=== PATIENT | female | born 1960 | race Caucasian/White ===

== ENCOUNTER 2020-04-28 19:50 | Emergency (ER) | payer OTHER, SELFPAY ==
--- NOTE | ~2020-04-28 | XR_ITS ---
XR ankle RT min 3V DATE: 04/28/2020 20:22 INDICATION: Rolled right ankle. Lateral pain and swelling. TECHNIQUE: 4 views COMPARISON: None FINDINGS: There is an avulsion fracture of the tip of the lateral malleolus, with mild overlying soft tissue swelling. No other fracture or dislocation or disruption of the ankle mortise. IMPRESSION: Cortical avulsion fracture of tip of lateral malleolus Reviewed, dictated and finalized at location A.
--- NOTE | 2020-04-28 19:53 | ED.LOWEXIN ---
HPI - Extremity Injury (Lower) General Chief Complaint: Extremity Injury, Lower Stated Complaint: Right ankle injury Time Seen by Provider: 04/28/20 19:57 Source: patient and RN notes reviewed Mode of arrival: ambulatory Limitations: no limitations History of Present Illness HPI Narrative: 59-year-old female presents to the emergency room with right lateral ankle pain and swelling after stepping off the curb in somehow twisting her ankle. Swelling is noted to the lateral right ankle. Tenderness to palpation in the lateral malleolus. Able to move all 5 toes. Positive pedal pulse. No metatarsal pain. Related Data Home Medications Medication Instructions Recorded Confirmed bupropion HCl 200 mg PO BID 04/28/20 04/28/20 estradiol-norethindrone acet 1 tablet PO DAILY 04/28/20 04/28/20 [[place]] hydrocodone-acetaminophen 1 tablet PO Q6H PRN 04/28/20 04/28/20 lisinopril 20 mg PO DAILY 04/28/20 04/28/20 omeprazole 20 mg PO DAILY 04/28/20 04/28/20 Allergies Allergy/AdvReac Type Severity Reaction Status Date / Time No Known Allergies Allergy Verified 04/28/20 20:12 Review of Systems Review of Systems: Narrative: CONSTITUTIONAL: Denies fever, chills, or sweats. CARDIOVASCULAR: Denies chest pain, palpitations, or edema. RESPIRATORY: Denies cough or dyspnea. GASTROINTESTINAL: Denies abdominal pain, nausea, vomiting, or diarrhea. GENITOURINARY: Denies dysuria or hematuria. SKIN: Denies rash or itching. MUSCULOSKELETAL: Denies back pain, or myalgia. Right lateral ankle pain and swelling. NEUROLOGIC: Denies headache, numbness, or weakness. PSYCHIATRIC: Denies anxiety or depression. All other systems reviewed are negative, except as documented in HPI. [facility] Past Medical History Medical History (Updated 04/28/20 @ 20:38 by Nolvia Mejia) Anxiety Chronic back pain GERD (gastroesophageal reflux disease) Hypertension Comments At the time of my signature, I reviewed and agree with the nursing past medical, surgical, social, and family history. There is no relevant family history pertinent to the patient complaint. Exam Narrative: Exam Narrative: GENERAL: This is a well-nourished, well-developed patient, in no apparent distress. HEAD: normocephalic, atraumatic. EYES: PERRL. EARS: External ears normal NECK: Neck supple, non-tender without lymphadenopathy, masses or thyromegaly. CARDIOVASCULAR: Regular rate and rhythm without murmurs, gallops, or rubs. RESPIRATORY: Clear to auscultation. Breath sounds equal bilaterally. No wheezes, rales, or rhonchi. SKIN: warm, intact with no suspicious lesions or rash, good texture and turgor. NEURO: awake, alert, and oriented to person, place and time. There were no obvious focal neurologic abnormalities. EXTREMITIES: Right lateral ankle tenderness with swelling. No calf tenderness. Negative Homans sign bilaterally.No bruising or metatarsal pain BACK: Nontender without deformity. Course Course Emergency Course: Splint applied. Post splint PMS intact. Discussed the importance of using crutches and not be weightbearing. The importance of leaving the splint on not removing it until cleared by Ortho. Patient and both verbalized understanding Vital Signs Vital signs: Vital Signs Temperature 98.4 F 04/28/20 19:55 Pulse Rate 81 04/28/20 19:55 Respiratory Rate 20 04/28/20 19:55 Blood Pressure 126/75 04/28/20 19:55 Pulse Oximetry 99 04/28/20 19:55 Temperature 98.4 F 04/28/20 19:55 Pulse Rate 81 04/28/20 19:55 Respiratory Rate 20 04/28/20 19:55 Blood Pressure 126/75 04/28/20 19:55 Pulse Oximetry 99 04/28/20 19:55 Reviewed MDM - Extremity Injury (Lower) MDM Narrative Medical decision making narrative: Discharge instructions reviewed with patient, as well as provided in writing per nursing staff. The instructions also include specific and strict return/GO TO THE ER as well as f/u information. All questions have been answered, and the pa
[2020-04-28 19:55] VITALS: BP 126/75; PULSE 81; RESP 20; TEMP 36.9; O2SAT 99
== END 2020-04-28 21:00 | disposition home or self-care (01) ==
PROVIDERS: Emergency Provider Nurse Practitioner; PCP Internal Medicine
DX: S82.64XA Nondisplaced fracture of lateral malleolus of right fibula, initial encounter for closed fracture (principal); X50.9XXA Other and unspecified overexertion or strenuous movements or postures, initial encounter; I10 Essential (primary) hypertension; K21.9 Gastro-esophageal reflux disease without esophagitis; F41.9 Anxiety disorder, unspecified
CPT/HCPCS: 29515; 73610; 99214; G0463

== ENCOUNTER 2022-02-04 11:51 | Outpatient (CLI) | payer OTHER, SELFPAY ==
--- NOTE | ~2022-02-04 | MR_ITS ---
MRI of the left shoulder Technique: Axial proton-density fat-sat images, coronal proton density fat-sat and T2 fat-sat images, and sagittal T1-weighted and T2 fat-sat images were acquired. Clinical History: Pain Findings: There is minimal degenerative change at the AC joint, without significant subacromial spur. Coracoclavicular, coracoacromial, and coracohumeral ligaments are intact. Supraspinatus and infraspinatus tendons are intact, without partial or full-thickness tear. Subscapul mao tendon is intact with minimal tendinosis. Tendon of the long head of the biceps is intact. No definite labral tear identified. Probable small sublabral recess superiorly. There is area of marrow edema at the posterior superior humeral head. Inferior humeral ligament is in tact. Small glenohumeral joint effusion is present. Mild chondromalacia of the glenohumeral joint. No fluid distention of the subacromial/subdeltoid bursa. No muscle atrophy or edema. Impression: Marrow edema at the posterior superior humeral head. Correlate for bone contusion or impaction injury . No definite Hill-Sachs deformity present, but correlate for prior shoulder dislocation injury. No rotator cuff or definite labral tear. Mild chondromalacia of the glenohumeral joint with small joint effusion. Reviewed, dictated and finalized at [facility]. [employer] Impression: Marrow edema at the posterior superior humeral head. Correlate for bone contusi on or impaction injury. No definite Hill-Sachs deformity present, but correlate for prior shoulder dislocation injury. No rotator cuff or definite labral tear. Mild chondromalacia of the glenohumeral joint with small joint effusion.
== END 2022-02-04 11:52 ==
LOC: MICIMG 11:54
PROVIDERS: PCP Physician Assistant; Visit Provider Physician Assistant Surgical
DX: M75.82 Other shoulder lesions, left shoulder (principal); M25.512 Pain in left shoulder; M94.212 Chondromalacia, left shoulder
CPT/HCPCS: 73221

== ENCOUNTER 2022-06-24 16:31 | Emergency (ER) | payer OTHER, SELFPAY ==
[2022-06-24 16:36] VITALS: BP 108/68; PULSE 81; RESP 16; TEMP 37.3; O2SAT 96
--- NOTE | 2022-06-24 16:42 | ED.URI ---
HPI - URI/Sore Throat General Chief Complaint: Upper Respiratory Infection Stated Complaint: sore throat Time Seen by Provider: 06/24/22 16:42 Source: patient and RN notes reviewed History of Present Illness HPI Narrative: Patient is a 8-year-old female presents to urgent care with complaints of a sore throat since Tuesday. Patient denies any exposures. States that she has not had any fever, nausea or vomiting however her temperature ?normally runs 96-97 F . Patient has not taken anything [id number] for her symptoms. No other acute complaints. No acute distress noted. Patient aware of the plan of care. Some parts of this dictation were generated by voice recognition software and may contain typographical and/or grammatical inaccuracies. Related Data Home Medications Medication Instructions Recorded Confirmed bupropion HCl 200 mg tablet,12 hr 200 mg PO BID 04/28/20 06/24/22 sustained-release lisinopril 20 mg tablet 20 mg PO DAILY 04/28/20 06/24/22 Allergies Allergy/AdvReac Type Severity Reaction Status Date / Time No Known Allergies Allergy Verified 06/24/22 16:43 Review of Systems Review of Systems: CONSTITUTIONAL: Denies fever, chills, or sweats. EYES: Denies visual changes, redness, or discharge. ENT: Reports a sore throat, mild congestion, postnasal drainage CARDIOVASCULAR: Denies chest pain, palpitations, or edema. RESPIRATORY: Denies cough or dyspnea. GASTROINTESTINAL: Denies abdominal pain, nausea, vomiting, or diarrhea. GENITOURINARY: Denies dysuria or hematuria. SKIN: Denies rash or itching. MUSCULOSKELETAL: Denies back pain, joint pain, or myalgia. NEUROLOGIC: Denies headache, numbness, or weakness. All other systems reviewed are negative, except as documented in HPI. [facility] Past Medical History Medical History Anxiety Chronic back pain Closed fracture of distal end of right fibula and tibia (~04/28/20) GERD (gastroesophageal reflux disease) Hypertension Social History Social History Smoking status: Unknown if ever smoked Lack of Transportation: No Lack of Food: Never True Current Housing: I Have Housing Concerned About Future Housing: No Difficulty Paying Gas/Electric Bills: No Difficulty Paying for Meds: No Currently Unemployed: No Education: Trade/Vocational Certificate Difficulty w/ Childcare or Family Care: No Comments At the time of my signature, I reviewed and agree with the nursing past medical, surgical, social, and family history. There is no relevant family history pertinent to the patient complaint. Exam Narrative: GENERAL: This is a well-nourished, well-developed patient, in no apparent distress. HEAD: normocephalic, atraumatic. EYES: PERRL. Sclera clear/white. Vision is grossly intact. EARS: External ears normal, auditory canals clear and without drainage, TMs normal without perforation. Hearing grossly intact. NOSE: External nose normal with no obvious nasal discharge, nares without redness, clear rhinorrhea. THROAT: Mucous membranes moist, mild erythema to posterior pharynx with moderate postnasal drainage NECK: Neck supple CARDIOVASCULAR: Regular rate and rhythm without murmurs, gallops, or rubs. RESPIRATORY: Clear to auscultation. Breath sounds equal bilaterally. No wheezes, rales, or rhonchi. SKIN: warm, intact with no suspicious lesions or rash, good texture and turgor. NEURO: awake, alert, and oriented to person, place and time. There were no obvious focal neurologic abnormalities. EXTREMITIES: No clubbing, cyanosis, or edema. Course Course Level of Care: Express Care Visit Vital Signs Vital signs: Vital Signs Temperature 99.1 F 06/24/22 16:36 Pulse Rate 81 06/24/22 16:36 Respiratory Rate 16 06/24/22 16:36 Blood Pressure 108/68 06/24/22 16:36 Pulse Oximetry 96 06/24/22 16:36 Oxygen Delivery
== END 2022-06-24 17:06 | disposition home or self-care (01) ==
PROVIDERS: Emergency Provider Nurse Practitioner Family; PCP Physician Assistant
DX: J02.9 Acute pharyngitis, unspecified (principal); K21.9 Gastro-esophageal reflux disease without esophagitis; I10 Essential (primary) hypertension; F41.9 Anxiety disorder, unspecified
CPT/HCPCS: 87081; 87880; 99213; G0463